=== PATIENT | male | born 1950 | race Caucasian/White ===

== ENCOUNTER 2017-08-11 12:09 | Inpatient (IN) | payer MEDICARE ==
[2017-08-11] VITALS (8 sets, daily range): BP systolic 79–117; BP diastolic 48–62; PULSE 75–91; RESP 11–18; TEMP 97.8–98.7; O2SAT 92–98
[~2017-08-11] VITALS: Ht 193 cm; Wt 116.1 kg
[~2017-08-11 12:09] MED LIST: AMLO10TA2 PO; ASPI1TAB57 PO; CLON0.2T PO; CLON1 PO; HYDR-3366 PO; HYDR-3799 PO; HYDR25TA5 PO; LEXA20TA PO; LISI40TA PO; METF500T PO; TOPR200T PO; TRAZ50TA12 PO; ZOCO80TA PO
[2017-08-11 13:06] LABS: AUTOMATED NEUTROPHIL # 7.5 TH/MM3 (1.8-7.7); BASOPHIL # 0.1 TH/MM3 (0-0.2); BASOPHIL % 0.5 % (0.0-2.0); EOSINOPHIL % 0.4 % (0.0-4.0); HEMATOCRIT 48.6 % (39.0-51.0); HEMOGLOBIN 16.3 GM/DL (13.0-17.0); LYMPH % 20.9 % (9.0-44.0); LYMPHOCYTE # 2.2 TH/MM3 (1.0-4.8); MEAN CELL VOLUME 97.7 FL (80.0-100.0); MEAN CORPUSCULAR HEMOGLOBIN 32.8 PG (27.0-34.0); MEAN CORPUSCULAR HGB CONC 33.6 % (32.0-36.0); MEAN PLATELET VOLUME 9.8 FL (7.0-11.0); MONO % 6.9 % (0.0-8.0); MONOCYTE # 0.7 TH/MM3 (0-0.9); NEUT % 71.3 % (16.0-70.0); PLATELET COUNT 206 TH/MM3 (150-450); RED BLOOD COUNT 4.98 MIL/MM3 (4.50-5.90); RED CELL DISTRIBUTION WIDTH 13.2 % (11.6-17.2); WHITE BLOOD COUNT 10.6 TH/MM3 (4.0-11.0)
--- NOTE | 2017-08-11 13:08 | RADRPT ---
EXAM DATE/TIME: 08/11/2017 12:42 [facility] COMPARISON: No previous studies available for comparison. INDICATIONS : Dizziness, loss of appetite RADIATION DOSE: 39.76 CTDIvol (mGy) MEDICAL HISTORY : Hypertension. Diabetes SURGICAL HISTORY : None. ENCOUNTER: Initial ACUITY: 1 day PAIN SCALE: 0/10 LOCATION: Bilateral cranial TECHNIQUE: Multiple contiguous axial images were obtained of the head. Using automated exposure control and adj ustment of the mA and/or kV according to patient size, radiation dose was kept as low as reasonably a chievable to obtain optimal diagnostic quality images. DICOM format image data is available electro nically for review and comparison. FINDINGS: CEREBRUM: There is mild generalized atrophy. Ventricles are normal. No evidence of midline shift, mass lesion, hemorrhage or acute infarction. No extra-axial fluid collections are seen. POSTERIOR FOSSA: The cerebellum and brainstem demonstrate no acute finding. The 4th ventricle is midline. The cerebe llopontine angle is unremarkable. EXTRACRANIAL: Visualized sinuses are clear. SKULL: The calvaria is intact. No evidence of skull fracture. CONCLUSION: No acute intracranial abnormality is identified. Wayne Vásquez MD on August 11, 2017 at 13:04 Board Certified Radiologist. This report was verified electronically.
[2017-08-11 13:14] LABS: PROTHROMBIN TIME - PATIENT 10.6 SEC (9.8-11.6)
[2017-08-11 13:25] LABS: ALBUMIN 3.8 GM/DL (3.4-5.0); ALT (GPT) 25 U/L (12-78); AST (GOT) 11 U/L (15-37); BICARBONATE 18.5 MEQ/L (21.0-32.0); BLOOD UREA NITROGEN 55 MG/DL (7-18); CALCIUM 8.7 MG/DL (8.5-10.1); CHLORIDE 81 MEQ/L (98-107); CREATININE 2.86 MG/DL (0.60-1.30); GLOMERULAR FILTRATION RATE 22 ML/MIN (>89); MAGNESIUM 2.8 MG/DL (1.5-2.5)
--- NOTE | 2017-08-11 13:28 | RADRPT ---
EXAM DATE/TIME: 08/11/2017 13:12 [facility] COMPARISON: CHEST SINGLE AP, November 29, 2014, 20:04. INDICATIONS : Weakness. No appetite in 5 days. Pain in entire upper GI tract. MEDICAL HISTORY : Hypertension. Diabetes. SURGICAL HISTORY : None. ENCOUNTER: Initial ACUITY: 1 day PAIN SCORE: 3/10 LOCATION: Esophagus FINDINGS: PA and lateral views of the chest demonstrate the lungs to be symmetrically aerated without evidence of mass, infiltrate or effusion. The cardiomediastinal contours are unremarkable. Osseous structure s are intact. There is a thin oblique area of density linear in nature in the left midlung field most likely representing scarring antrum or findings slight atelectasis. CONCLUSION: Oblique thin linear area of scarring or discoid atelectasis left midlung field. Vladimir Llanos MD on August 11, 2017 at 13:24 Board Certified Radiologist. This report was verified electronically.
[2017-08-11 13:29] LABS: ALKALINE PHOSPHATASE 119 U/L (45-117); TOTAL BILIRUBIN ADULT 0.7 MG/DL (0.2-1.0); TOTAL PROTEIN 7.8 GM/DL (6.4-8.2); TROPONIN I LESS THAN 0.02 NG/ML (0.02-0.05)
[2017-08-11 13:30] LABS: BACTERIA, URINE RARE /hpf; BILIRUBIN, URINE NEG (NEG); BLOOD, URINE NEG (NEG); GLUCOSE,URINE 1000 mg/dL (NEG); KETONE, URINE 10 mg/dL (NEG); NITRITE,URINE NEG (NEG); URINE COLOR LIGHT-YELLOW (YELLW/STRAW); URINE LEUKOCYTE ESTERASE NEG (NEG)
[2017-08-11 13:31] LABS: GLUCOSE,RANDOM 1084 MG/DL (74-106); SODIUM (NA) 120 MEQ/L (136-145)
[2017-08-11] MEDS ORDERED: DEXT 5%-NACL 0.9% 1000 ML INJ 1,000 ML IV SCH (14:00)
[2017-08-11] MEDS ORDERED: POTASSIUM CHLOR 40 MEQ PREMIX 100 ML IV PRN ×4 (14:00→16:00)
[2017-08-11] MEDS ORDERED: SODIUM PHOSPHATE INJ 15 MMOL in SODIUM CHLORIDE 0.9% INJ 100 ML IV PRN (14:00)
[2017-08-11] MEDS ORDERED: SODIUM CHLOR 0.9% 1000 ML INJ 1,000 ML IV SCH (14:00)
[2017-08-11] MEDS ORDERED: SODIUM BICARBONATE 8.4% SOLN 50 MEQ/50 ML VIAL IV PUSH PRN ×2 (14:00)
[2017-08-11] MEDS ORDERED: POTASSIUM CHLOR 20 MEQ PREMIX 100 ML IV PRN ×8 (14:00→16:00)
[2017-08-11] MEDS ORDERED: INSULIN HUMAN REGULAR 1,000 UNITS/10 ML VIAL IV PUSH ONE (14:00)
[2017-08-11] MEDS: SODIUM CHLOR 0.9% 1000 ML INJ 1,000 ML IV SCH ×2 (14:13→15:00)
[2017-08-11] MEDS ORDERED: oxyCODONE/ACETAMINOPHEN 10 MG/325 MG TAB PO ONE (14:45)
[2017-08-11] MEDS ORDERED: INSULIN REGULAR (IV INFUSION) 100 UNITS in SODIUM CHLORIDE 0.9% INJ 99 ML IV PRN (15:00)
--- NOTE | 2017-08-11 15:57 | PD ---
HPI Chief Complaint: Dizziness Time Seen by Provider: 13:46 Travel History International Travel<30 days: No Contact w/Intl Traveler<30days: No Traveled to known affect area: No History of Present Illness HPI Patient is a 67-year-old male who comes in complaining of feeling unwell. Per , he has not been acting like himself for the past 5 days. She says he just seems altered, unable to answer questions and off-balance. He says that he was diagnosed with diabetes a few years ago, but then was told that maybe he did not have it. He says he started to take the Metformin 5 days ago when he started feeling unwell. He denies any pains. He says he has had increased thirst. His says he has been eating a lot of fruit and drinking a lot. It sounds like he has been drinking a lot of things packed with sugar. He has not had fever or chills. Nothing seems to be improving his symptoms. PFSH Past Medical History High Cholesterol: Yes Diabetes: Yes Patient Takes Glucophage: Yes Hypertension: Yes Insomnia: Yes Medical other: Yes (chronic back pain) ?: Not Past Surgical History Genitourinary Surgery: Yes (HERNIA REPAIR) Family History Family Myocardial Infarction: Yes Social History Alcohol Use: No Tobacco Use: No Substance Use: No Allergies-Medications (Allergen,Severity, Reaction): Coded Allergies: No Known Allergies (Unverified Allergy, Unknown, 08/11/17) Reported Meds & Prescriptions Reported Meds & Active Scripts Active Klonopin (Clonazepam) 1 Mg Tab 1 Mg PO HS Metformin (Metformin HCl) 500 Mg Tab 500 Mg PO BIDPC Hydralazine HCl 25 Mg Tablet 25 Mg PO TID [place] (Hydrocodone-Acetaminophen) 10-325 Mg Tab 1 Tab PO Q6H PRN [place] (Hydrocodone-Acetaminophen) 10-325 Mg Tab 1 Tab PO Q6H PRN Hydrochlorothiazide 25 Mg Tab 25 Mg PO BID Zocor (Simvastatin) 80 Mg Tab 80 Mg PO DAILY Lisinopril 40 Mg Tab 40 Mg PO DAILY Trazodone (Trazodone HCl) 50 Mg Tab 100 Mg PO HS Reported Aspirin 81 (Aspirin) 81 Mg Tabdr 81 Mg PO DAILY Review of Systems Except as stated in HPI: all other systems reviewed are Neg General / Constitutional: No: Fever, Chills Eyes: No: Blurred Vision HENT: No: Headaches Cardiovascular: No: Chest Pain or Discomfort Respiratory: No: Shortness of Breath Gastrointestinal: No: Nausea, Vomiting, Abdominal Pain Musculoskeletal: No: Pain Neurologic: Positive: Weakness, Coordination Problem Physical Exam Narrative GENERAL: Awake and alert, no acute distress. SKIN: Focused skin assessment warm/dry. No wounds or signs of infection. HEAD: Atraumatic. Normocephalic. EYES: Pupils equal and round. No scleral icterus. ENT: Mucous membranes pink and moist. NECK: Trachea midline. No JVD. CARDIOVASCULAR: Regular rate and rhythm. No murmur appreciated. RESPIRATORY: No accessory muscle use. Clear to auscultation. Breath sounds equal bilaterally. GASTROINTESTINAL: Abdomen soft, non-tender, nondistended. MUSCULOSKELETAL: No obvious deformities. No clubbing. No cyanosis. No edema. NEUROLOGICAL: Awake and alert. No obvious cranial nerve deficits. Motor grossly within normal limits. Normal speech. PSYCHIATRIC: Appropriate mood and affect; insight and judgment normal. Data Data Last Documented VS Vital Signs Date Time Temp Pulse Resp B/P (MAP) Pulse Ox O2 Delivery O2 Flow Rate FiO2 08/11/17 14:14 75 18 101/52 (68) 97 Nasal Cannula 2.00 08/11/17 12:11 97.8 Orders Orders Electrocardiogram (08/11/17 12:21) Complete Blood Count With Diff (08/11/17 12:21) Comprehensive Metabolic Panel (08/11/17 12:21) Magnesium (Mg) (08/11/17 12:21) Ckmb (Isoenzyme) Profile (08/11/17 12:21) Troponin I (08/11/17 12:21) Act Partial Throm Time (Ptt) (08/11/17 12:21) Prothrombin Time / Inr (Pt) (08/11/17 12:21) Urinalysis - C+S If Indicated (08/11/17 12:21) Chest, Pa & Lat (08/11/17 12:21) Ct Brain W/O Iv Contrast(Rout) (08/11/17 12:21) Blood Gas Venous (Vbg) (08/11/17 14:00) [employer] Sales[employer] / Telemetry RADHA.Q8H (08/11/17 14:00) ^ Insert Iv (08/11/17 14:00) Sodium Chlor 0.9% 1000 Ml Inj (Ns 1000 M (08/11/17 14:00) Sodium Chlor 0.9% 1000 Ml Inj (Ns 1000 M (08/11/17 14:00) Dext 5%-Nacl 0.9% 1000 Ml Inj (D5w-Ns 10 (08/11/17 14:00) Insulin Human Regular Inj (Novolin R Inj (08/11/17 14:00) Insulin Regular (Iv Infusion) (Novolin R (08/11/17 15:00) Potassium Chlor 40 Meq Premix (Kcl 40 Me (08/11/17 14:00) Potassium Chlor 40 Meq Premix (Kcl 40 Me (08/11/17 14:00) Potassium Chlor 20 Meq Premix (Kcl 20 Me (08/11/17 14:00) Potassium Chlor 20 Meq Premix (Kcl 20 Me (08/11/17 14:00) Potassium Chlor 20 Meq Premix (Kcl 20 Me (08/11/17 14:00) Potassium Chlor 20 Meq Premix (Kcl 20 Me (08/11/17 14:00) Potassium Chlor 20 Meq Premix (Kcl 20 Me (08/11/17 14:00) Potassium Chlor 20 Meq Premix (Kcl 20 Me (08/11/17 14:00) Sodium Bicarbonate 8.4% Inj (Sodium Bica (08/11/17 14:00) Sodium Bicarbonate 8.4% Inj (Sodium Bica (08/11/17 14:00) Sodium Phosphate Inj (Sodium Phosphate I (08/11/17 14:00) Hemoglobin (Hgb) A1c (08/11/17 14:00) Basic Metabolic Panel (Bmp) (08/11/17 19:00) Basic Metabolic Panel (Bmp) (08/12/17 01:00) Basic Metabolic Panel (Bmp) (08/12/17 07:00) Basic Metabolic Panel (Bmp) (08/12/17 13:00) Magnesium (Mg) (08/11/17 19:00) Magnesium (Mg) (08/12/17 01:00) Magnesium (Mg) (08/12/17 07:00) Magnesium (Mg) (08/12/17 13:00) Phosphorus (Po4) (08/11/17 19:00) Phosphorus (Po4) (08/12/17 01:00) Phosphorus (Po4) (08/12/17 07:00) Phosphorus (Po4) (08/12/17 13:00) Beta Hydroxybutyrate (Acetone) (08/12/17 01:00) Beta Hydroxybutyrate (Acetone) (08/12/17 13:00) Oxycodone-Acetamin 10-325 Mg (Percocet 1 (08/11/17 14:45) Admit Order (Ed Use Only) (08/11/17 ) [employer] Sales[employer] / Telemetry RADHA.Q8H (08/11/17 15:13) Vital Signs (Adult) Q4H (08/11/17 15:13) Diet Npo (08/11/17 Dinner) Activity Bed Rest (08/11/17 15:13) Labs Laboratory Tests Test 08/11/17 12:38 08/11/17 13:09 08/11/17 14:07 White Blood Count 10.6 TH/MM3 Red Blood Count 4.98 MIL/MM3 Hemoglobin 16.3 GM/DL Hematocrit 48.6 % Mean Corpuscular Volume 97.7 FL Mean Corpuscular Hemoglobin 32.8 PG Mean Corpuscular Hemoglobin Concent 33.6 % Red Cell Distribution Width 13.2 % Platelet Count 206 TH/MM3 Mean Platelet Volume 9.8 FL Neutrophils (%) (Auto) 71.3 % Lymphocytes (%) (Auto) 20.9 % Monocytes (%) (Auto) 6.9 % Eosinophils (%) (Auto) 0.4 % Basophils (%) (Auto) 0.5 % Neutrophils # (Auto) 7.5 TH/MM3 Lymphocytes # (Auto) 2.2 TH/MM3 Monocytes # (Auto) 0.7 TH/MM3 Eosinophils # (Auto) 0.0 TH/MM3 Basophils # (Auto) 0.1 TH/MM3 CBC Comment DIFF FINAL Differential Comment Prothrombin Time 10.6 SEC Prothromb Time International Ratio 1.0 RATIO Activated Partial Thromboplast Time 24.8 SEC Blood Urea Nitrogen 55 MG/DL Creatinine 2.86 MG/DL Random Glucose 1084 MG/DL Total Protein 7.8 GM/DL Albumin 3.8 GM/DL Calcium Level 8.7 MG/DL Magnesium Level 2.8 MG/DL Alkaline Phosphatase 119 U/L Aspartate Amino Transf (AST/SGOT) 11 U/L Alanine Aminotransferase (ALT/SGPT) 25 U/L Total Bilirubin 0.7 MG/DL Sodium Level 120 MEQ/L Potassium Level 4.9 MEQ/L Chloride Level 81 MEQ/L Carbon Dioxide Level 18.5 MEQ/L Anion Gap 21 MEQ/L Estimat Glomerular Filtration Rate 22 ML/MIN Total Creatine Kinase 51 U/L Troponin I LESS THAN 0.02 NG/ML Urine Color LIGHT-YELLOW Urine Turbidity CLEAR Urine pH 5.0 Urine Specific [place] 1.024 Urine Protein NEG mg/dL Urine Glucose (UA) 1000 mg/dL Urine Ketones 10 mg/dL Urine Occult Blood NEG Urine Nitrite NEG Urine Bilirubin NEG Urine Urobilinogen LESS THAN 2.0 MG/DL Urine Leukocyte Esterase NEG Urine RBC 1 /hpf Urine WBC 1 /hpf Urine Bacteria RARE /hpf Microscopic Urinalysis Comment CULT NOT INDICATED Blood Gas Puncture Site IV Blood Gas Patient Temperature 98.6 Venous Blood pH 7.27 Venous Blood Partial Pressure CO2 45 mmHg Venous Blood Partial Pressure O2 31 mmHg Venous Blood HCO3 20 mmol/L Venous Blood Oxygen Saturation 55 % Venous Blood Oxygen Content 12.3 Vol % Venous Blood Base Excess -5.8 mmol/L [facility] Medical Decision Making Medical Screen Exam Complete: Yes Emergency Medical Condition: Yes Differential Diagnosis DKA versus HHS versus hyperglycemia versus dehydration Narrative Course Patient is a 67-year-old male who comes in altered. Exam shows no focal neurologic deficit. IV established, labs sent. Labs concerning for a sodium of 120, anion gap of 21, sugar of 1084. Patient given IV fluids. Given insulin bolus. Started on insulin drip. CT head performed shows no acute abnormalities. Chest x-ray shows atelectasis. Last [address] 08/11/17 1221 Signed Impressions: Service Date/Time: Friday, August 11, 2017 12:42 - CONCLUSION: No acute intracranial abnormality is identified. Wayne Vásquez MD Chest X-Ray 08/11/17 1221 Signed Impressions: Service Date/Time: Friday, August 11, 2017 13:12 - CONCLUSION: Oblique thin linear area of scarring or discoid atelectasis left midlung field. Vladimir Llanos MD Patient will be admitted for further management. Diagnosis Primary Impression: DKA, type 2 Qualified Codes: E11.10 - Type 2 diabetes mellitus with ketoacidosis without coma Fatmata Diaz MD Aug 11, 2017 15:56
[2017-08-11] MEDS ORDERED: POTASSIUM CHLORIDE 25 MEQ EFFERVESCENT TAB PO PRN (16:00)
[2017-08-11] MEDS ORDERED: RESP: ALBUTEROL 2.5 MG/IPRATROPIUM 0.5 MG NEB (PRN) INH (16:00)
[2017-08-11] MEDS ORDERED: MAGNESIUM SULFATE INJ 2 GM in SODIUM CHLORIDE 0.9% INJ 96 ML IV PRN (16:00)
[2017-08-11] MEDS ORDERED: POTASSIUM PHOSPHATE MONOBASIC 500 MG TAB PO PRN (16:00)
[2017-08-11] MEDS ORDERED: POTASSIUM PHOSPHATE MONOBASIC 500 MG TAB PO/TUBE PRN (16:00)
[2017-08-11] MEDS ORDERED: ONDANSETRON HCL 4 MG/2 ML VIAL IV PUSH PRN (16:00)
[2017-08-11] MEDS ORDERED: MAGNESIUM HYDROXIDE SUSP 30 ML CUP PO PRN (16:00)
[2017-08-11] MEDS ORDERED: MAGNESIUM OXIDE 400 MG TAB PO PRN (16:00)
[2017-08-11] MEDS ORDERED: SODIUM PHOSPHATE INJ 30 MMOL in SODIUM CHLOR 0.9% 250 ML INJ 240 ML IV PRN (16:00)
[2017-08-11] MEDS ORDERED: CHLORHEXIDINE GLUCONATE 2 % 1 PACK (2 CLOTHS) TOP PRN (16:00)
[2017-08-11] MEDS ORDERED: MISCELLANEOUS NURSING INFORMATION XX SCH (16:00)
[2017-08-11] MEDS ORDERED: MAGNESIUM SULFATE INJ 4 GM in SODIUM CHLORIDE 0.9% INJ 92 ML IV PRN (16:00)
[2017-08-11] MEDS ORDERED: POTASSIUM PHOSPHATE INJ 30 MMOL in SODIUM CHLOR 0.9% 250 ML INJ 250 ML IV PRN (16:00)
--- NOTE | 2017-08-11 16:12 | HHI.HP ---
HPI Service Critical Care Medicine Primary Care Physician Lisha Carbone , R3 MD Khadijah Admission Diagnosis DKA Diagnosis: Chief Complaint: confusion Travel History International Travel<30 Days: No Contact w/Intl Traveler <30 Da: No Traveled to Known Affected Are: No History of Present Illness This is a 67yM with history of T2DM who is on metformin at home, who complains of 3 days of progressive forgetfulness into confusion which has also been associated with polydipsia, excessive thirst, crampy generalized abdominal pain. his called the family medicine clinic who recommended coming to the emergency department. In the ER, he had a serum glucose > 1000, a pH < 7.3, + keturia, and elevated BUN/Cr. He is admitted for diabetic ketoacidosis. When I evaluated the patient, he is slightly somnolent but arousable, which limits his review of systems and complete history. He confirms the time course and HPI. Review of Systems ROS Limitations: Clinical Condition, Altered Mental Status Constitutional: COMPLAINS OF: Fatigue, DENIES: Fever, Chills Endocrine: COMPLAINS OF: Polydipsia, Polyuria, DENIES: Polyphagia Respiratory: DENIES: Cough, Wheezing, Sputum production, Shortness of breath Cardiovascular: DENIES: Chest pain, Syncope, Dyspnea on Exertion, Lower Extremity Edema Gastrointestinal: COMPLAINS OF: Abdominal pain, DENIES: Black stools, Constipation, Diarrhea, Nausea, Vomiting Genitourinary: DENIES: Urinary incontinence, Urgency, Dysuria, Nocturia Musculoskeletal: DENIES: Back pain Neurologic: DENIES: Abnormal gait, Headache Psychiatric: COMPLAINS OF: Confusion, DENIES: Anxiety Past Family Social History Allergies: Coded Allergies: No Known Allergies (Unverified Allergy, Unknown, 08/11/17) Past Medical History type II diabetes htn hld sleep apnea depression seasonal allergies chronic low back pain Past Surgical History inguinal hernia repair carpel tunnel release tonsillectomy left knee arthroscopy Reported Medications Klonopin (Clonazepam) 1 Mg Tab 1 Mg PO HS Metformin (Metformin HCl) 500 Mg Tab 500 Mg PO BIDPC Hydralazine HCl 25 Mg Tablet 25 Mg PO TID [place] (Hydrocodone-Acetaminophen) 10-325 Mg Tab 1 Tab PO Q6H PRN [place] (Hydrocodone-Acetaminophen) 10-325 Mg Tab 1 Tab PO Q6H PRN Hydrochlorothiazide 25 Mg Tab 25 Mg PO BID Zocor (Simvastatin) 80 Mg Tab 80 Mg PO DAILY Lisinopril 40 Mg Tab 40 Mg PO DAILY Trazodone (Trazodone HCl) 50 Mg Tab 100 Mg PO HS Aspirin 81 (Aspirin) 81 Mg Tabdr 81 Mg PO DAILY Active Ordered Medications See MAR Family History no family history of DM Social History smokes 1ppd x 40 years. denies etoh or other drugs. Physical Exam Vital Signs Vital Signs Date Time Temp Pulse Resp B/P (MAP) Pulse Ox O2 Delivery O2 Flow Rate FiO2 08/11/17 14:14 75 18 101/52 (68) 97 Nasal Cannula 2.00 08/11/17 12:11 97.8 89 17 117/62 (80) 98 Physical Exam gen: middle-aged male, lying in bed, confused. heent: nc. at. perrl. mucous membranes dry. fruity breath. neck: no jvd. trachea midline. chest: tachypneic, using accessory muscles. clear to auscultation. cv: tachycardic rate, regular rhythm. sinus by tele. abd: soft, obese, mildly tender generally to palpation, nondistended. no guarding. extr: distal pulses 2+. no peripheral edema. neuro: RASS -1. oriented to person only. mildly confused. CAM+. follows commands. Laboratory Laboratory Tests Test 08/11/17 12:38 08/11/17 13:09 08/11/17 14:07 White Blood Count 10.6 Red Blood Count 4.98 Hemoglobin 16.3 Hematocrit 48.6 Mean Corpuscular Volume 97.7 Mean Corpuscular Hemoglobin 32.8 Mean Corpuscular Hemoglobin Concent 33.6 Red Cell Distribution Width 13.2 Platelet Count 206 Mean Platelet Volume 9.8 Neutrophils (%) (Auto) 71.3 Lymphocytes (%) (Auto) 20.9 Monocytes (%) (Auto) 6.9 Eosinophils (%) (Auto) 0.4 Basophils (%) (Auto) 0.5 Neutrophils # (Auto) 7.5 Lymphocytes # (Auto) 2.2 Monocytes # (Auto) 0.7 Eosinophils # (Auto) 0.0 Basophils # (Auto) 0.1 CBC Comment DIFF FINAL Differential Comment Prothrombin Time 10.6 Prothromb Time International Ratio 1.0 Activated Partial Thromboplast Time 24.8 Blood Urea Nitrogen 55 Creatinine 2.86 Random Glucose 1084 Total Protein 7.8 Albumin 3.8 Calcium Level 8.7 Magnesium Level 2.8 Alkaline Phosphatase 119 Aspartate Amino Transf (AST/SGOT) 11 Alanine Aminotransferase (ALT/SGPT) 25 Total Bilirubin 0.7 Sodium Level 120 Potassium Level 4.9 Chloride Level 81 Carbon Dioxide Level 18.5 Anion Gap 21 Estimat Glomerular Filtration Rate 22 Total Creatine Kinase 51 Troponin I LESS THAN 0.02 Urine Color LIGHT-YELLOW Urine Turbidity CLEAR Urine pH 5.0 Urine Specific [place] 1.024 Urine Protein NEG Urine Glucose (UA) 1000 Urine Ketones 10 Urine Occult Blood NEG Urine Nitrite NEG Urine Bilirubin NEG Urine Urobilinogen LESS THAN 2.0 Urine Leukocyte Esterase NEG Urine RBC 1 Urine WBC 1 Urine Bacteria RARE Microscopic Urinalysis Comment CULT NOT INDICATED Blood Gas Puncture Site IV Blood Gas Patient Temperature 98.6 Venous Blood pH 7.27 Venous Blood Partial Pressure CO2 45 Venous Blood Partial Pressure O2 31 Venous Blood HCO3 20 Venous Blood Oxygen Saturation 55 Venous Blood Oxygen Content 12.3 Venous Blood Base Excess -5.8 Result Diagram: 08/11/17 1238 08/11/17 1238 Imaging Last Impressions Head CT 08/11/17 1221 Signed Impressions: Service Date/Time: Friday, August 11, 2017 12:42 - CONCLUSION: No acute intracranial abnormality is identified. Wayne Vásquez MD Chest X-Ray 08/11/17 1221 Signed Impressions: Service Date/Time: Friday, August 11, 2017 13:12 - CONCLUSION: Oblique thin linear area of scarring or discoid atelectasis left midlung field. MD Rudy Borjasi VTE Risk Assessment Caprini VTE Risk Assessment: Mod/High Risk (score >= 2) Caprini Risk Assessment Model Point Value = 1 Point Value = 2 Point Value = 3 Point Value = 5 Age 41-60 Minor surgery BMI > 25 kg/m2 Swollen legs Varicose veins or History of unexplained or recurrent spontaneous Oral contraceptives or hormone replacement Sepsis (< 1 month) Serious lung disease, including pneumonia (< 1 month) Abnormal pulmonary function Acute myocardial infarction Congestive heart failure (< 1 month) History of inflammatory bowel disease Medical patient at bed rest Age 61-74 Arthroscopic surgery Major open surgery (> 45 min) Laparoscopic surgery (> 45 min) Malignancy Confined to bed (> 72 hours) Immobilizing plaster cast Central venous access Age >= 75 History of VTE Family history of VTE Factor V Leiden Prothrombin [id number] Lupus anticoagulant Anticardiolipin antibodies Elevated serum homocysteine Heparin-induced thrombocytopenia Other congenital or acquired thrombophilia Stroke (< 1 month) Elective arthroplasty Hip, pelvis, or leg fracture Acute spinal cord injury (< 1 month) Prophylaxis Regimen Total Risk Factor Score Risk Level Prophylaxis Regimen 0-1 Low Early ambulation 2 Moderate Order ONE of the following: *Sequential Compression Device (SCD) *Heparin 5000 units SQ BID 3-4 Higher Order ONE of the following medications: *Heparin 5000 units SQ TID *Enoxaparin/Lovenox 40 mg SQ daily (WT < 150 kg, CrCl > 30 mL/min) *Enoxaparin/Lovenox 30 mg SQ daily (WT < 150 kg, CrCl > 10-29 mL/min) *Enoxaparin/Lovenox 30 mg SQ BID (WT < 150 kg, CrCl > 30 mL/min) AND/OR *Sequential Compression Device (SCD) 5 or more Highest Order ONE of the following medications: *Heparin 5000 units SQ TID (Preferred with Epidurals) *Enoxaparin/Lovenox 40 mg SQ daily (WT < 150 kg, CrCl > 30 mL/min) *Enoxaparin/Lovenox 30 mg SQ daily (WT < 150 kg, CrCl > 10-29 mL/min) *Enoxaparin/Lovenox 30 mg SQ BID (WT < 150 kg, CrCl > 30 mL/min) AND *Sequential Compression Device (SCD) Assessment and Plan Assessment and Plan Assessment: this is a 67yM with history of type II diabetes and presents with diabetic ketoacidosis, evidence of hyperosmolar hyperglycemic state, with associated end-organ damage including acute kidney injury, severe metabolic acidosis, severe dehydration, and pseudohyponatremia. Critically ill. insulin drip, aggressive electrolyte and fluid resuscitation. admit to ICU. serial labs. Active Problems: Diabetic Ketoacidosis Hyperosmolar Hyperglycemic state Hyperkalemia total body potassium depletion severe anion-gap metabolic acidosis Pseudohyponatremia (corrected sodium 144) Acute kidney injury severe dehydration/acute intravascular volume depletion Metabolic encephalopathy Plan: Admit to ICU 2L LR bolus insulin drip with q1h glucose checks aggressive potassium replacement. serial BMPs close monitoring of uop with strict i/o's. frequent neuro checks, avoid long-acting sedatives NS @ 250cc/hr, add dextrose when glucose improved. hold home anti-hypertensives, hold home metformin. transition to SQ insulin and long-acting insulin when anion gap closes. SCDs, lovenox. clear liquids now, advance to diabetic diet when glucose < 300. Long-term, he will likely need insulin therapy at home. Critical care time: 51 minutes, exclusive of separately billable procedures. Steve Cabezas MD Aug 11, 2017 16:12
--- NOTE | 2017-08-11 17:18 | HHI.HP ---
[facility] Service Family Medicine Primary Care Physician Lisha Carbone , R3 MD Khadijah Admission Diagnosis DKA Diagnoses: International Travel<30 Days: No Contact w/Intl Traveler<30days: No Known Affected Area: No History of Present Illness The patient is a pleasant 67-year-old man with h/o T2DM, HTN, HLD, chronic back pain who presented to the ED earlier today with malaise for the past 2-3 days per his . The patient is seen and evaluated in the ICU with his at bedside following admission by critical care. His states that the patient has not seemed himself over the past 2-3 days and has seemed somewhat confused which had both worsened earlier today prompting evaluation in the ED. His also reports he has been incredibly thirsty over this time., And has been drinking lots of water and also has been having polyuria. reports that the patient was unsteady with his gait earlier today and was dizzy. She denies noticing any john weakness of his extremities or any obvious focal neuro deficit. She denies any sick symptoms over the past week. No known sick contacts. She denies the patient having any recent fevers, chest pain, shortness of breath, cough, diarrhea. The patient is alert and oriented to person but otherwise disoriented and still not able to answer all questions appropriately. His states the patient has started taking metformin on 07/28. She states she didn't notice any significant differences and the patient prior to 3 days ago. She does report however a previous mild adverse reaction with metformin however she is unable to provide more specific details. Review of Systems ROS Limitations: Clinical Condition (ROS limited due to AMS) Past Family Social History Past Medical History HTN T2DM HLD Depression Insomnia Chronic back pain Past Surgical History R inguinal hernia repair Knee surgery L hand carpal tunnel release Allergies: Coded Allergies: No Known Allergies (Unverified Allergy, Unknown, 08/11/17) Family History Mother: pancreatic cancer, HTN Father: at 52, CVA x6, HTN, CHF Siblings: CVA, lung CA Social History EtOH: occasional Tobacco: 40 pack/yr smoker; quit in 2013 Illicit drugs: currently denies, remote hx of marijuana drug use in the 60-70s ( never IV) Moved to [place] in 2012 from [place] Lives with Two healthy children Physical Exam Vital Signs Vital Signs Date Time Temp Pulse Resp B/P (MAP) Pulse Ox O2 Delivery O2 Flow Rate FiO2 08/11/17 16:16 87 18 101/56 (71) 98 Nasal Cannula 2.00 08/11/17 14:14 75 18 101/52 (68) 97 Nasal Cannula 2.00 08/11/17 12:11 97.8 89 17 117/62 (80) 98 Physical Exam GENERAL: NAD, lying comfortably in bed, pleasant, conversive NEURO: Alert. Normal speech. assignment manager tested and intact. Motor grossly normal. Extremity strength 5/5 throughout. Gait not tested. SKIN: Warm and dry. No rashes or erythema. HEAD: Normocephalic. Atraumatic. EYES: PERRL. EOMI. No injection or drainage. ENT: No nasal drainage. Mucous membranes dry. No oral ulcers or lesions. NECK: Supple, trachea midline. No JVD. CARDIOVASCULAR: Regular rate and rhythm without murmurs, rubs, or gallops. Peripheral pulses 2+. Capillary refill ~3 seconds. RESPIRATORY: Breath sounds clear to auscultation and equal bilaterally, without wheezes, rales, or rhonchi. No accessory muscle use. GASTROINTESTINAL: Abdomen soft, nontender, nondistended, normal BS. No organomegaly or masses. No rebound tenderness. No guarding. MUSCULOSKELETAL: No lower extremity edema. BACK: Nontender without obvious deformity. No CVA tenderness. Laboratory Laboratory Tests Test 08/11/17 12:38 08/11/17 13:09 08/11/17 14:07 08/11/17 16:33 White Blood Count 10.6 Red Blood Count 4.98 Hemoglobin 16.3 Hematocrit 48.6 Mean Corpuscular Volume 97.7 Mean Corpuscular Hemoglobin 32.8 Mean Corpuscular Hemoglobin Concent 33.6 Red Cell Distribution Width 13.2 Platelet Count 206 Mean Platelet Volume 9.8 Neutrophils (%) (Auto) 71.3 Lymphocytes (%) (Auto) 20.9 Monocytes (%) (Auto) 6.9 Eosinophils (%) (Auto) 0.4 Basophils (%) (Auto) 0.5 Neutrophils # (Auto) 7.5 Lymphocytes # (Auto) 2.2 Monocytes # (Auto) 0.7 Eosinophils # (Auto) 0.0 Basophils # (Auto) 0.1 CBC Comment DIFF FINAL Differential Comment Prothrombin Time 10.6 Prothromb Time International Ratio 1.0 Activated Partial Thromboplast Time 24.8 Blood Urea Nitrogen 55 Creatinine 2.86 Random Glucose 1084 Total Protein 7.8 Albumin 3.8 Calcium Level 8.7 Magnesium Level 2.8 Alkaline Phosphatase 119 Aspartate Amino Transf (AST/SGOT) 11 Alanine Aminotransferase (ALT/SGPT) 25 Total Bilirubin 0.7 Sodium Level 120 Potassium Level 4.9 Chloride Level 81 Carbon Dioxide Level 18.5 Anion Gap 21 Estimat Glomerular Filtration Rate 22 Total Creatine Kinase 51 Troponin I LESS THAN 0.02 Urine Color LIGHT-YELLOW Urine Turbidity CLEAR Urine pH 5.0 Urine Specific [place] 1.024 Urine Protein NEG Urine Glucose (UA) 1000 Urine Ketones 10 Urine Occult Blood NEG Urine Nitrite NEG Urine Bilirubin NEG Urine Urobilinogen LESS THAN 2.0 Urine Leukocyte Esterase NEG Urine RBC 1 Urine WBC 1 Urine Bacteria RARE Microscopic Urinalysis Comment CULT NOT INDICATED Blood Gas Puncture Site IV Blood Gas Patient Temperature 98.6 Venous Blood pH 7.27 Venous Blood Partial Pressure CO2 45 Venous Blood Partial Pressure O2 31 Venous Blood HCO3 20 Venous Blood Oxygen Saturation 55 Venous Blood Oxygen Content 12.3 Venous Blood Base Excess -5.8 Result Diagram: 08/11/17 1238 08/11/17 1238 Imaging Last [address] 08/11/17 1221 Signed Impressions: Service Date/Time: Friday, August 11, 2017 12:42 - CONCLUSION: No acute intracranial abnormality is identified. Wayne Vásquez MD Chest X-Ray 08/11/17 1221 Signed Impressions: Service Date/Time: Friday, August 11, 2017 13:12 - CONCLUSION: Oblique thin linear area of scarring or discoid atelectasis left midlung field. Vladimir Llanos MD Caprini VTE Risk Assessment Caprini VTE Risk Assessment: Mod/High Risk (score >= 2) Caprini Risk Assessment Model Point Value = 1 Point Value = 2 Point Value = 3 Point Value = 5 Age 41-60 Minor surgery BMI > 25 kg/m2 Swollen legs Varicose veins or History of unexplained or recurrent spontaneous Oral contraceptives or hormone replacement Sepsis (< 1 month) Serious lung disease, including pneumonia (< 1 month) Abnormal pulmonary function Acute myocardial infarction Congestive heart failure (< 1 month) History of inflammatory bowel disease Medical patient at bed rest Age 61-74 Arthroscopic surgery Major open surgery (> 45 min) Laparoscopic surgery (> 45 min) Malignancy Confined to bed (> 72 hours) Immobilizing plaster cast Central venous access Age >= 75 History of VTE Family history of VTE Factor V Leiden Prothrombin [id number] Lupus anticoagulant Anticardiolipin antibodies Elevated serum homocysteine Heparin-induced thrombocytopenia Other congenital or acquired thrombophilia Stroke (< 1 month) Elective arthroplasty Hip, pelvis, or leg fracture Acute spinal cord injury (< 1 month) Prophylaxis Regimen Total Risk Factor Score Risk Level Prophylaxis Regimen 0-1 Low Early ambulation 2 Moderate Order ONE of the following: *Sequential Compression Device (SCD) *Heparin 5000 units SQ BID 3-4 Higher Order ONE of the following medications: *Heparin 5000 units SQ TID *Enoxaparin/Lovenox 40 mg SQ daily (WT < 150 kg, CrCl > 30 mL/min) *Enoxaparin/Lovenox 30 mg SQ daily (WT < 150 kg, CrCl > 10-29 mL/min) *Enoxaparin/Lovenox 30 mg SQ BID (WT < 150 kg, CrCl > 30 mL/min) AND/OR *Sequential Compression Device (SCD) 5 or more Highest Order ONE of the following medications: *Heparin 5000 units SQ TID (Preferred with Epidurals) *Enoxaparin/Lovenox 40 mg SQ daily (WT < 150 kg, CrCl > 30 mL/min) *Enoxaparin/Lovenox 30 mg SQ daily (WT < 150 kg, CrCl > 10-29 mL/min) *Enoxaparin/Lovenox 30 mg SQ BID (WT < 150 kg, CrCl > 30 mL/min) AND *Sequential Compression Device (SCD) Assessment and Plan Assessment and Plan The patient is a 67-year-old man with h/o T2DM admitted with metabolic acidosis due to diabetic ketoacidosis and with lab findings evident for hyperosmolar hyperglycemia, acute kidney injury, dehydration, pseudohyponatremia, and hypotension. Problem List: (1) DKA (diabetic ketoacidoses) ICD Codes: E13.10 - Other specified diabetes mellitus with ketoacidosis without coma Plan: - Patient admitted by critical care to ICU - Insulin regular 0.1 units/kg IV bolus given - Patient started on an insulin regular drip with q1h glucose checks - s/p 2L LR boluses - Glucose noted to be improving from 1084 on admission -> 899 -> 537 - Serial BMPs ordered per critical care - K+ protocol for supplementation ordered as patient has a total K body deficit - Plan for transition to subq insulin with 2-hour bridge with insulin drip when ketoacidosis has resolved with a closed anion gap and the patient is able to eat (2) Hypotension ICD Codes: I95.9 - Hypotension, unspecified Plan: Hold home antihypertensives s/p 2L LR boluses Continue NS at 250 cc/hr then transition to D5-NS once blood glucose is < 250 (3) RAFITA (acute kidney injury) ICD Codes: N17.9 - Acute kidney failure, unspecified Plan: Aggressive IVF hydration as above Continue to monitor renal function Avoid nephrotoxins Strict I/Os (4) Hyponatremia ICD Codes: E87.1 - Hypo-osmolality and hyponatremia Plan: Pseudohyponatremia due to severe hyperglycemia Monitor serial BMPs Plan as above for DKA (5) Dehydration ICD Codes: E86.0 - Dehydration Plan: Aggressive IVF hydration as above (6) Nutrition, metabolism, and development symptoms ICD Codes: R63.8 - Other symptoms and signs concerning food and fluid intake Plan: Fluids: NS at 250 cc/hr for now Electrolytes: monitor serial BMPs Nutrition: CLD, transition to diabetic diet once BG < 300 DVT ppx: Lovenox 30 mg sq q24h Physician Certification 2 Midnight Certification Type: Admission for Inpatient Services Order for Inpatient Services The services are ordered in accordance with Medicare regulations or non- Medicare payer requirements, as applicable. In the case of services not specified as inpatient-only, they are appropriately provided as inpatient services in accordance with the 2-midnight benchmark. Estimated LOS (days): 2 days is the estimated time the patient will need to remain in the hospital, assuming treatment plan goals are met and no additional complications. Post-Hospital Plan: Home Barrera Allred MD Aug 11, 2017 17:18
[2017-08-11] MEDS ORDERED: LACTATED RINGER'S 1000 ML INJ 1,000 ML IV ONE ×2 (17:45→19:15)
[2017-08-11] MEDS: ENOXAPARIN SODIUM 30 MG/0.3 ML SYRINGE SQ SCH (17:47)
[2017-08-11 19:00] LABS: BICARBONATE 21.9 MEQ/L (21.0-32.0); CALCIUM 8.6 MG/DL (8.5-10.1); CREATININE 2.66 MG/DL (0.60-1.30); MAGNESIUM 2.6 MG/DL (1.5-2.5)
[2017-08-11] MEDS: traZODone HCL 50 MG TAB PO SCH (19:53)
[2017-08-11] MEDS: DOCUSATE SODIUM 50 MG/SENNA 8.6 MG TAB PO SCH (19:53)
[2017-08-11 20:17] LABS: CALCIUM 8.3 MG/DL (8.5-10.1); CREATININE 2.43 MG/DL (0.60-1.30)
[2017-08-11 21:05] LABS: BICARBONATE 22.7 MEQ/L (21.0-32.0); CALCIUM 8.2 MG/DL (8.5-10.1); CREATININE 2.45 MG/DL (0.60-1.30)
[2017-08-11] MEDS ORDERED: DEXTROSE 50% IN WATER 50 ML VIAL(D50) IV PUSH PRN (21:45)
[2017-08-11] MEDS ORDERED: GLUCAGON 1 MG/ML VIAL OTHER PRN (21:45)
[2017-08-11] MEDS ORDERED: DC previous DKA orders (HMC 1917) ONE (21:45)
[2017-08-11] MEDS ORDERED: DC Insulin drip 2 hrs post basal insulin dose ONE (22:00)
[2017-08-11] MEDS ORDERED: INSULIN DETEMIR 100 UNITS/ML VIAL SQ ONE (22:00)
[2017-08-12] VITALS (11 sets, daily range): BP systolic 102–124; BP diastolic 58–72; PULSE 81–124; RESP 13–18; TEMP 98.3–100; O2SAT 93–98
[2017-08-12] MEDS: CHLORHEXIDINE GLUCONATE 2 % 1 PACK (2 CLOTHS) TOP SCH (04:00)
[2017-08-12 04:36] LABS: HEMATOCRIT 41.1 % (39.0-51.0); HEMOGLOBIN 14.4 GM/DL (13.0-17.0); MEAN CELL VOLUME 93.4 FL (80.0-100.0); MEAN CORPUSCULAR HEMOGLOBIN 32.7 PG (27.0-34.0); MEAN PLATELET VOLUME 10.1 FL (7.0-11.0); PLATELET COUNT 150 TH/MM3 (150-450); RED CELL DISTRIBUTION WIDTH 13.2 % (11.6-17.2); WHITE BLOOD COUNT 8.8 TH/MM3 (4.0-11.0)
[2017-08-12 04:53] LABS: CALCIUM 8.1 MG/DL (8.5-10.1); CREATININE 1.85 MG/DL (0.60-1.30)
[2017-08-12] MEDS: ATORVASTATIN 40 MG TAB PO SCH (07:35)
[2017-08-12] MEDS: ASPIRIN EC 81 MG TABEC PO SCH (07:35)
[2017-08-12] MEDS: DOCUSATE SODIUM 50 MG/SENNA 8.6 MG TAB PO SCH ×2 (07:35→21:00)
[2017-08-12] MEDS: INSULIN NovoLIN REGULAR SUPPLEMENTAL SCALE SQ SCH ×4 (07:36→21:00)
[2017-08-12] MEDS: INSULIN DETEMIR 100 UNITS/ML VIAL SQ SCH ×2 (09:00→21:31)
[2017-08-12] MEDS ORDERED: INSULIN DETEMIR 100 UNITS/ML VIAL SQ SCH ×2 (09:00→21:00)
[2017-08-12] MEDS: LACTATED RINGER'S 1000 ML INJ 1,000 ML IV SCH ×3 (09:21→21:32)
--- NOTE | 2017-08-12 09:48 | EKG ---
Date Performed: 08/11/2017 Time Performed: 13:01:16 PTAGE: 67 years EKG: Sinus rhythm POSSIBLE LEFT ATRIAL ENLARGEMENT MARKED LEFT AXIS DEVIATION PATTERN CONSISTENT WITH PULMONARY DISEAS E ABNORMAL ECG Since the prior tracing, there has been no significant change PREVIOUS TRACING : 11/30/2014 08.05 DOCTOR: Manuel Alvarez Interpretating Date/Time 08/12/2017 09:46:08
--- NOTE | 2017-08-12 10:35 | HHI.FPPN ---
Subjective Remarks Patient is less confused today. Complaining of acid reflux symptoms. He reported getting up to use a bedside commode this morning, and feeling slightly "weak." He is uncomfortable in the bed, saying that it is too small, that he is 6.5. He denies any headaches, shortness breath, chest pain, or palpitations. (Aj Ribera MD, R3) Objective Vitals Vital Signs Date Time Temp Pulse Resp B/P (MAP) Pulse Ox O2 Delivery O2 Flow Rate FiO2 08/12/17 08:20 95 Nasal Cannula 2.00 08/12/17 08:00 100.0 97 16 103/69 (80) 94 08/12/17 08:00 97 08/12/17 04:00 98.3 86 13 105/71 (82) 97 08/12/17 00:00 98.4 81 14 109/67 (81) 98 08/11/17 20:00 98.1 83 17 82/49 (60) 92 08/11/17 19:00 79 15 88/50 (63) 92 08/11/17 18:00 91 08/11/17 18:00 98.7 81 17 99/57 (71) 96 08/11/17 17:00 76 11 79/48 (58) 94 08/11/17 16:30 81 18 103/58 (73) 95 08/11/17 16:16 87 18 101/56 (71) 98 Nasal Cannula 2.00 08/11/17 14:14 75 18 101/52 (68) 97 Nasal Cannula 2.00 08/11/17 12:11 97.8 89 17 117/62 (80) 98 I/O 08/11/17 08/11/17 08/11/17 08/12/17 08/12/17 08/12/17 07:00 15:00 23:00 07:00 15:00 23:00 Intake Total 3076 ml 480 ml Output Total 400 ml 900 ml Balance 2676 ml -420 ml Intake Oral 200 ml 480 ml IV Total 2876 ml Output Urine Total 400 ml 900 ml (Aj Ribera MD, R3) Result Diagram: 08/12/1731608/12/17 0317 Imaging Last [address] 08/11/17 1221 Signed Impressions: Service Date/Time: Friday, August 11, 2017 12:42 - CONCLUSION: No acute intracranial abnormality is identified. Wayne Vásquez MD Chest X-Ray 08/11/17 1221 Signed Impressions: Service Date/Time: Friday, August 11, 2017 13:12 - CONCLUSION: Oblique thin linear area of scarring or discoid atelectasis left midlung field. Vladimir Llanos MD Objective Remarks GENERAL: Well-nourished, well-developed patient. No acute distress. Obese male. SKIN: Warm and dry. No rash. EYES: No scleral icterus. No injection or drainage. PERRLA. EOMI. HENT: Normocephalic. Atraumatic. MMM. NECK: No visible JVD or lymphadenopathy. CARDIOVASCULAR: Warm and well perfused. Clear to auscultation bilaterally. RESPIRATORY: Normal respiratory effort. Clear to auscultation bilaterally. Regular rate and rhythm. No murmurs. GASTROINTESTINAL: Abdomen nondistended. MUSCULOSKELETAL: Strength grossly WNL. BACK: Without obvious deformity. NEURO/PSYCH: Afocal. Awake, alert, and oriented x3. (Aj Ribera MD, R3) A/P Assessment and Plan The patient is a 67-year-old man with h/o T2DM admitted with metabolic acidosis due to diabetic ketoacidosis and with lab findings evident for hyperosmolar hyperglycemia, acute kidney injury, dehydration, pseudohyponatremia, and hypotension. Discharge Planning Once blood pressure is controlled with subcutaneous insulin. Likely 24-48 hours. (Aj Ribera MD, R3) Attending Attestation Medical rounds were performed this morning Patient seen and examined with Dr Gayle Ribera Agree with documentation in above note See Orders (Geo Kc MD) Problem List: (1) DKA (diabetic ketoacidoses) ICD Codes: E13.10 - Other specified diabetes mellitus with ketoacidosis without coma Plan: - Patient admitted by critical care to ICU --> transfer to Med/Surg. - Glucose noted to be improving from 1084 on admission -> 899 -> 537 -> 362. - Anion gap this morning of 13. Transition to subcutaneous insulin, Levemir 15 units twice a day. Sliding scale insulin with meals. - Continue with lactated Ringer's at 150 ML's per hour. - Diabetic diet. - K+ within normal limits at 3.8. (2) Hypotension ICD Codes: I95.9 - Hypotension, unspecified Plan: Resolved. Continue with IV fluids. (3) RAFITA (acute kidney injury) ICD Codes: N17.9 - Acute kidney failure, unspecified Plan: Aggressive IVF hydration as above, creatinine improved from 2.86 on admission to 1.85. Continue to monitor renal function Avoid nephrotoxins Strict I/Os (4) Hyponatremia ICD Codes: E87.1 - Hypo-osmolality and hyponatremia Plan: Pseudohyponatremia due to severe hyperglycemia Monitor serial BMPs Plan as above for DKA (5) Dehydration ICD Codes: E86.0 - Dehydration Plan: Aggressive IVF hydration as above (6) Nutrition, metabolism, and development symptoms ICD Codes: R63.8 - Other symptoms and signs concerning food and fluid intake Plan: Fluids: Lactated Ringer at 150 ML's per hour. Electrolytes: monitor serial BMPs Nutrition: Diabetic diet. DVT ppx: Lovenox 30 mg sq q24h Seen and discussed with Dr. Kc. (Aj Ribera MD, R3) Aj Ribera MD, R3 Aug 12, 2017 10:35 Geo Kc MD Aug 12, 2017 14:39
[2017-08-12] MEDS ORDERED: INSULIN ASPART 1,000 UNITS/10 ML VIAL SQ ONE ×3 (12:25→16:00)
[2017-08-12] MEDS: ENOXAPARIN SODIUM 30 MG/0.3 ML SYRINGE SQ SCH (16:15)
[2017-08-12 16:39] LABS: BICARBONATE 22.5 MEQ/L (21.0-32.0); CALCIUM 8.2 MG/DL (8.5-10.1); CREATININE 1.65 MG/DL (0.60-1.30)
[2017-08-12] MEDS: INSULIN ASPART 1,000 UNITS/10 ML VIAL SQ SCH (17:00)
[2017-08-12] MEDS: traZODone HCL 50 MG TAB PO SCH (21:31)
[2017-08-12 23:52] LABS: BICARBONATE 24.4 MEQ/L (21.0-32.0); CALCIUM 7.8 MG/DL (8.5-10.1); CREATININE 1.27 MG/DL (0.60-1.30)
[2017-08-13] VITALS (9 sets, daily range): BP systolic 103–139; BP diastolic 69–85; PULSE 85–113; RESP 7–37; TEMP 97.7–98.7; O2SAT 93–95
[2017-08-13] MEDS ORDERED: POTASSIUM CHLORIDE 10 MEQ CONTROLLED RELEASE TAB PO ONE (00:15)
[2017-08-13] MEDS: LACTATED RINGER'S 1000 ML INJ 1,000 ML IV SCH ×2 (03:30→05:38)
[2017-08-13] MEDS: CHLORHEXIDINE GLUCONATE 2 % 1 PACK (2 CLOTHS) TOP SCH (04:00)
[2017-08-13 05:25] LABS: AUTOMATED NEUTROPHIL # 3.3 TH/MM3 (1.8-7.7); BASOPHIL % 0.5 % (0.0-2.0); EOSINOPHIL # 0.1 TH/MM3 (0-0.4); EOSINOPHIL % 1.5 % (0.0-4.0); HEMATOCRIT 38.6 % (39.0-51.0); HEMOGLOBIN 13.5 GM/DL (13.0-17.0); LYMPH % 37.9 % (9.0-44.0); LYMPHOCYTE # 2.4 TH/MM3 (1.0-4.8); MEAN CELL VOLUME 92.5 FL (80.0-100.0); MEAN CORPUSCULAR HEMOGLOBIN 32.2 PG (27.0-34.0); MEAN CORPUSCULAR HGB CONC 34.8 % (32.0-36.0); MEAN PLATELET VOLUME 9.2 FL (7.0-11.0); MONO % 8.7 % (0.0-8.0); MONOCYTE # 0.6 TH/MM3 (0-0.9); NEUT % 51.4 % (16.0-70.0); PLATELET COUNT 138 TH/MM3 (150-450); RED BLOOD COUNT 4.17 MIL/MM3 (4.50-5.90); RED CELL DISTRIBUTION WIDTH 12.9 % (11.6-17.2); WHITE BLOOD COUNT 6.3 TH/MM3 (4.0-11.0)
[2017-08-13 05:45] LABS: BICARBONATE 25.6 MEQ/L (21.0-32.0); CALCIUM 8.1 MG/DL (8.5-10.1); CREATININE 1.23 MG/DL (0.60-1.30)
--- NOTE | 2017-08-13 08:37 | HHI.FPPN ---
Subjective Remarks Mr. Anderson reports feeling well. No acute events overnight. Not having CP, SOB, or dizziness. No fevers. (Aj Ribera MD, R3) Objective Vitals Vital Signs Date Time Temp Pulse Resp B/P (MAP) Pulse Ox O2 Delivery O2 Flow Rate FiO2 08/13/17 06:00 93 08/13/17 04:00 98.7 85 10 138/69 (92) 93 08/13/17 04:00 85 08/13/17 02:00 87 08/13/17 00:00 96 08/13/17 00:00 98.0 96 37 117/82 (94) 94 08/12/17 22:00 108 08/12/17 20:00 108 08/12/17 20:00 98.3 108 18 102/68 (79) 94 08/12/17 18:00 124 08/12/17 16:00 99.8 109 16 124/72 (89) 93 08/12/17 16:00 111 08/12/17 14:00 109 08/12/17 12:00 97 08/12/17 12:00 99.0 97 18 124/58 (80) 97 08/12/17 10:00 106 I/O 08/12/17 08/12/17 08/12/17 08/13/17 08/13/17 08/13/17 07:00 15:00 23:00 07:00 15:00 23:00 Intake Total 480 ml 3172 ml 480 ml Output Total 900 ml 1000 ml 900 ml Balance -420 ml 2172 ml -420 ml Intake Oral 480 ml 700 ml 480 ml IV Total 2472 ml Output Urine Total 900 ml 1000 ml 900 ml (Aj Ribera MD, R3) Result Diagram: 08/13/17 0500 08/13/17 0500 Objective Remarks GENERAL: Well-nourished, well-developed patient. No acute distress. Obese male. SKIN: Warm and dry. No rash. EYES: No scleral icterus. No injection or drainage. PERRLA. EOMI. HENT: Normocephalic. Atraumatic. MMM. NECK: No visible JVD or lymphadenopathy. CARDIOVASCULAR: Warm and well perfused. Clear to auscultation bilaterally. RESPIRATORY: Normal respiratory effort. Clear to auscultation bilaterally. Regular rate and rhythm. No murmurs. GASTROINTESTINAL: Abdomen nondistended. MUSCULOSKELETAL: Strength grossly WNL. BACK: Without obvious deformity. NEURO/PSYCH: Afocal. Awake, alert, and oriented x3. (Aj Ribera MD, R3) A/P Assessment and Plan The patient is a 67-year-old man with h/o T2DM admitted with metabolic acidosis due to diabetic ketoacidosis and with lab findings evident for hyperosmolar hyperglycemia, acute kidney injury, dehydration, pseudohyponatremia, and hypotension. Discharge Planning Metabolic acidosis resolved, blood glucose controlled. D/c home today with f/u with PCP in 2-3 days. (Aj Ribera MD, R3) Attending Attestation THIS CASE WAS DISCUSSED WITH THE RESIDENT PHYSICIANS.PATIENT WAS SEEN AND EXAMINED WITH RESIDENT DR Gayle RIBERA. I HAVE REVIEWED THE RECORD AND AGREE WITH THE ABOVE NOTE AND PLAN OF CARE WAS DISCUSSED. I HAVE AUTHORIZED THE ORDERs (Geo Kc MD) Problem List: (1) DKA (diabetic ketoacidoses) ICD Codes: E13.10 - Other specified diabetes mellitus with ketoacidosis without coma Status: Resolved Plan: - Glucose corrected with SUbQ insulin (total 140 units with both short and long acting over past 24 hours). BG 139 this AM. - HG A1c = 10.4 in June. - Discontinue with lactated Ringer's at 150 ML's per hour. - Diabetic diet. - K+ low normal at 3.1 - will replete with 40 meq KCL today and recheck at noon. If > or = to 3.5 can be d/c'ed with follow up in BMP in 2-3 days. (2) Hypotension ICD Codes: I95.9 - Hypotension, unspecified Status: Resolved Plan: Resolved. Continue with IV fluids. (3) RAFITA (acute kidney injury) ICD Codes: N17.9 - Acute kidney failure, unspecified Status: Resolved Plan: Resolved. Continue to monitor renal function Avoid nephrotoxins Strict I/Os (4) Nutrition, metabolism, and development symptoms ICD Codes: R63.8 - Other symptoms and signs concerning food and fluid intake Plan: Fluids: PO intake. Electrolytes: monitor serial BMPs Nutrition: Diabetic diet. DVT ppx: Lovenox 30 mg sq q24h Seen and discussed with Dr. Kc. (Aj Ribera MD, R3) Aj Ribera MD, R3 Aug 13, 2017 08:37 Geo Kc MD Aug 14, 2017 13:34
[2017-08-13] MEDS ORDERED: POTASSIUM CHLORIDE 20 MEQ CONTROLLED RELEASE TAB PO ONE (08:45)
[2017-08-13] MEDS: DOCUSATE SODIUM 50 MG/SENNA 8.6 MG TAB PO SCH (08:47)
[2017-08-13] MEDS: ATORVASTATIN 40 MG TAB PO SCH (08:47)
[2017-08-13] MEDS: INSULIN NovoLIN REGULAR SUPPLEMENTAL SCALE SQ SCH ×2 (08:48→12:41)
[2017-08-13] MEDS: ASPIRIN EC 81 MG TABEC PO SCH (08:48)
[2017-08-13] MEDS: INSULIN DETEMIR 100 UNITS/ML VIAL SQ SCH (08:49)
[2017-08-13] MEDS: INSULIN ASPART 1,000 UNITS/10 ML VIAL SQ SCH ×2 (08:49→12:32)
[2017-08-13] MEDS ORDERED: ACETAMINOPHEN/HYDROcodone 325 MG/10 MG TAB PO PRN (09:45)
[2017-08-13] MEDS ORDERED: NOVOINJ3 SQ (10:00)
[2017-08-13] MEDS ORDERED: POTA-163 PO (10:00)
[2017-08-13] MEDS ORDERED: LEVEMIR SQ (10:00)
--- NOTE | 2017-08-13 10:01 | HHI.DCPOC ---
Discharge Care Plan Diagnosis: (1) Dehydration (2) DKA, type 2 (3) Hypotension (4) RAFITA (acute kidney injury) (5) Diabetes mellitus Goals to Promote Your Health * To prevent worsening of your condition and complications * To maintain your health at the optimal level Directions to Meet Your Goals Take your medications as prescribed Follow your dietary instruction Follow activity as directed Keep your appointments as scheduled Take your immunizations and boosters as scheduled If your symptoms worsen call your PCP, if no PCP go to Urgent Care Center or Emergency Room Smoking is Dangerous to Your Health. Avoid second hand smoke Call the 24-hour hour crisis hotline for domestic abuse at Aj Ribera MD, R3 Aug 13, 2017 10:01
[2017-08-13] MEDS ORDERED: ONETKIT9 (10:04)
--- NOTE | 2017-08-13 10:07 | HHI.DS ---
Discharge Summary Admission Date Aug 11, 2017 at 15:15 Admitting Diagnosis DKA (1) DKA (diabetic ketoacidoses) Plan: - Glucose corrected with SUbQ insulin (total 140 units with both short and long acting over past 24 hours). BG 139 this AM. - HG A1c = 10.4 in June. - Discontinue with lactated Ringer's at 150 ML's per hour. - Diabetic diet. - K+ low normal at 3.1 - will replete with 40 meq KCL today and recheck at noon. If > or = to 3.5 can be d/c'ed with follow up in BMP in 2-3 days. ICD Codes: E13.10 - Other specified diabetes mellitus with ketoacidosis without coma Status: Resolved (2) Hypotension Plan: Resolved. Continue with IV fluids. ICD Codes: I95.9 - Hypotension, unspecified Status: Resolved (3) RAFITA (acute kidney injury) Plan: Resolved. Continue to monitor renal function Avoid nephrotoxins Strict I/Os ICD Codes: N17.9 - Acute kidney failure, unspecified Status: Resolved (4) Nutrition, metabolism, and development symptoms Plan: Fluids: PO intake. Electrolytes: monitor serial BMPs Nutrition: Diabetic diet. DVT ppx: Lovenox 30 mg sq q24h Seen and discussed with Dr. Kc. ICD Codes: R63.8 - Other symptoms and signs concerning food and fluid intake Brief History The patient is a pleasant 67-year-old man with h/o T2DM, HTN, HLD, chronic back pain who presented to the ED earlier today with malaise for the past 2-3 days per his . The patient is seen and evaluated in the ICU with his at bedside following admission by critical care. His states that the patient has not seemed himself over the past 2-3 days and has seemed somewhat confused which had both worsened earlier today prompting evaluation in the ED. His also reports he has been incredibly thirsty over this time., And has been drinking lots of water and also has been having polyuria. reports that the patient was unsteady with his gait earlier today and was dizzy. She denies noticing any john weakness of his extremities or any obvious focal neuro deficit. She denies any sick symptoms over the past week. No known sick contacts. She denies the patient having any recent fevers, chest pain, shortness of breath, cough, diarrhea. The patient is alert and oriented to person but otherwise disoriented and still not able to answer all questions appropriately. His states the patient has started taking metformin on 07/28. She states she didn't notice any significant differences and the patient prior to 3 days ago. She does report however a previous mild adverse reaction with metformin however she is unable to provide more specific details. CBC/BMP: 08/13/17 0500 08/13/17 0500 Significant Findings Laboratory Tests Test 08/11/17 12:38 08/11/17 13:09 08/11/17 14:07 08/11/17 16:33 Neutrophils (%) (Auto) 71.3 % (16.0-70.0) Blood Urea Nitrogen 55 MG/DL (7-18) Creatinine 2.86 MG/DL (0.60-1.30) Random Glucose 1084 MG/DL (74-106) 899 MG/DL (74-106) Magnesium Level 2.8 MG/DL (1.5-2.5) Alkaline Phosphatase 119 U/L (45-117) Aspartate Amino Transf (AST/SGOT) 11 U/L (15-37) Sodium Level 120 MEQ/L (136-145) Chloride Level 81 MEQ/L (98-107) Carbon Dioxide Level 18.5 MEQ/L (21.0-32.0) Anion Gap 21 MEQ/L (5-15) Estimat Glomerular Filtration Rate 22 ML/MIN (>89) Troponin I LESS THAN 0.02 NG/ML Urine Glucose (UA) 1000 mg/dL (NEG) Urine Ketones 10 mg/dL (NEG) Urine Bacteria RARE /hpf (NONE) Venous Blood pH 7.27 (7.360-7.400) Venous Blood Partial Pressure O2 31 mmHg (35-40) Venous Blood HCO3 20 mmol/L (22-26) Venous Blood Oxygen Saturation 55 % (70-76) Venous Blood Base Excess -5.8 mmol/L (-2-2) Test 08/11/17 16:45 08/11/17 17:43 08/11/17 19:35 08/11/17 19:42 Blood Urea Nitrogen 55 MG/DL (7-18) 54 MG/DL (7-18) Creatinine 2.66 MG/DL (0.60-1.30) 2.43 MG/DL (0.60-1.30) Random Glucose 761 MG/DL (74-106) 537 MG/DL (74-106) Magnesium Level 2.6 MG/DL (1.5-2.5) Sodium Level 124 MEQ/L (136-145) 127 MEQ/L (136-145) Chloride Level 89 MEQ/L (98-107) 94 MEQ/L (98-107) Estimat Glomerular Filtration Rate 24 ML/MIN (>89) 27 ML/MIN (>89) Calcium Level 8.3 MG/DL (8.5-10.1) Test 08/11/17 20:35 08/12/17 03:17 08/12/17 16:00 08/12/17 22:34 Blood Urea Nitrogen 51 MG/DL (7-18) 46 MG/DL (7-18) 37 MG/DL (7-18) 34 MG/DL (7-18) Creatinine 2.45 MG/DL (0.60-1.30) 1.85 MG/DL (0.60-1.30) 1.65 MG/DL (0.60-1.30) Random Glucose 432 MG/DL (74-106) 362 MG/DL (74-106) 321 MG/DL (74-106) 167 MG/DL (74-106) Calcium Level 8.2 MG/DL (8.5-10.1) 8.1 MG/DL (8.5-10.1) 8.2 MG/DL (8.5-10.1) 7.8 MG/DL (8.5-10.1) Sodium Level 131 MEQ/L (136-145) 133 MEQ/L (136-145) 134 MEQ/L (136-145) Chloride Level 97 MEQ/L (98-107) 97 MEQ/L (98-107) Estimat Glomerular Filtration Rate 27 ML/MIN (>89) 37 ML/MIN (>89) 42 ML/MIN (>89) 57 ML/MIN (>89) Red Blood Count 4.40 MIL/MM3 (4.50-5.90) Potassium Level 3.1 MEQ/L (3.5-5.1) Test 08/13/17 05:00 Red Blood Count 4.17 MIL/MM3 (4.50-5.90) Hematocrit 38.6 % (39.0-51.0) Platelet Count 138 TH/MM3 (150-450) Monocytes (%) (Auto) 8.7 % (0.0-8.0) Blood Urea Nitrogen 30 MG/DL (7-18) Random Glucose 153 MG/DL (74-106) Calcium Level 8.1 MG/DL (8.5-10.1) Potassium Level 3.1 MEQ/L (3.5-5.1) Estimat Glomerular Filtration Rate 59 ML/MIN (>89) PE at Discharge GENERAL: Well-nourished, well-developed patient. No acute distress. Obese male. SKIN: Warm and dry. No rash. EYES: No scleral icterus. No injection or drainage. PERRLA. EOMI. HENT: Normocephalic. Atraumatic. MMM. NECK: No visible JVD or lymphadenopathy. CARDIOVASCULAR: Warm and well perfused. Clear to auscultation bilaterally. RESPIRATORY: Normal respiratory effort. Clear to auscultation bilaterally. Regular rate and rhythm. No murmurs. GASTROINTESTINAL: Abdomen nondistended. MUSCULOSKELETAL: Strength grossly WNL. BACK: Without obvious deformity. NEURO/PSYCH: Afocal. Awake, alert, and oriented x3. Hospital Course Mr. Anderson is a pleasant 67-year-old male, with past medical history significant for type 2 diabetes, essential hypertension, depression, and chronic back pain on opiate pain medications, presenting to the emergency room with increased confusion, polydipsia, polyuria, and hypotension. His blood sugar was noted to be greater than 1000 on admission. He was noted to be in DKA. Started on an insulin pump, and gradually transition to subcutaneous insulin. He was feeling better within 24 hours of admission. He also had an AK I, that resolved with aggressive IV fluids. He will be discharged home in stable condition taking Levemir 20 units twice a day, as well as a high dose sliding scale for mealtime insulin. He knows to check his blood glucose at least 3 times a day, before meals. He will get a BMP repeated in 2-3 days, to monitor his potassium replacement. He should continue his antihypertensives as previously recommended by Dr. Juan Antonio baldwin. Discharged home in stable condition , and all questions were answered. Pt Condition on Discharge: Good Discharge Disposition: Discharge Home Discharge Instructions DIET: Follow Instructions for: Diabetic Diet Activities you can perform: Regular-No Restrictions Aj Ribera MD, R3 Aug 13, 2017 10:07
[2017-08-13] MEDS ORDERED: NOVOLOGP2 SQ (11:58)
[2017-08-13 13:47] LABS: BICARBONATE 24.1 MEQ/L (21.0-32.0); CALCIUM 8.5 MG/DL (8.5-10.1); CREATININE 1.31 MG/DL (0.60-1.30)
[2017-08-13 16:29] LABS: HEMOGLOBIN A1C 14.8 % (4.3-6.0)
[2017-08-13] MEDS ORDERED: ENOXAPARIN SODIUM 40 MG/0.4 ML SYRINGE SQ SCH (17:00)
== END 2017-08-13 15:15 | disposition home or self-care (01) | DRG 637 ==
LOC: NEPE 12:09 → NEDA 15:15 → HIMW 16:35
PROVIDERS: ADMIT Family Medicine; ATTEND Family Medicine
DX: E11.10 Type 2 diabetes mellitus with ketoacidosis without coma (principal); Z79.84 Long term (current) use of oral hypoglycemic drugs; G93.41 Metabolic encephalopathy; N17.9 Acute kidney failure, unspecified; I95.9 Hypotension, unspecified; E87.5 Hyperkalemia; E87.1 Hypo-osmolality and hyponatremia; I10 Essential (primary) hypertension; E78.5 Hyperlipidemia, unspecified; G47.30 Sleep apnea, unspecified; F32.9 Major depressive disorder, single episode, unspecified; Z79.82 Long term (current) use of aspirin; E66.9 Obesity, unspecified; Z68.31 Body mass index [BMI] 31.0-31.9, adult; E86.0 Dehydration; G47.00 Insomnia, unspecified; M54.5 Low back pain; G89.29 Other chronic pain; Z79.891 Long term (current) use of opiate analgesic; J30.2 Other seasonal allergic rhinitis; Z87.891 Personal history of nicotine dependence
CPT/HCPCS: 70450; 71046; 80048; 80053; 81001; 82550; 82805; 82947; 82948; 83036; 83605; 83735; 84100; 84484; 85025; 85027; 85610; 85730; 87641; 93005; 94150; 94640; 94667; 94668; 96374; J1650; J1815; J1817; J3480; J7030; J7120